=== PATIENT | male | born 1940 | race Caucasian/White ===

== ENCOUNTER 2024-06-15 12:17 | Inpatient (IN) | payer OTHER ==
[~2024-06-15] VITALS: Ht 180.3 cm; Wt 89.8 kg
[2024-06-15 12:35] VITALS: PULSE 70; RESP 20; O2SAT 95
[2024-06-15] MEDS ORDERED: ALLO300T2 PO (12:46)
[2024-06-15] MEDS ORDERED: ROSU10TA16 PO (12:46)
[2024-06-15] MEDS ORDERED: ATEN50TA PO (12:46)
[2024-06-15] MEDS ORDERED: HYDR25TA87 PO (12:46)
[2024-06-15] MEDS ORDERED: LISI10TA34 PO (12:46)
[2024-06-15 13:17] LABS: Basophils # (auto) 0 10 ^3/uL (0-0.2); Eosinophils # (auto) 0 10 ^3/uL (0-0.8); Monocytes # (auto) 0.9 10 ^3/uL (0-1.3); Neutrophils # (auto) 3.5 10 ^3/uL (1.6-8.6)
[2024-06-15 13:19] LABS: Basophils % (auto) 0.3 % (0.0-2.0); Eosinophils % (auto) 0.2 % (0.0-7.0); Hematocrit 41.3 % (41.0-53.0); Hemoglobin 14.1 g/dL (13.5-17.5); Lymphocytes # (auto) 0.8 10 ^3/uL (0.4-5.4); Lymphocytes % (auto) 15.8 % (10.0-50.0); Mean Corpuscular Hemoglobin 34.4 pg (28.0-32.0); Mean Corpuscular Hgb Conc. 34.2 g/dL (32.0-36.0); Mean Corpuscular Volume 100.6 fL (80.0-100.0); Monocytes % (auto) 16.7 % (0.0-12.0); Platelet Count (auto) 248 10^3/uL (140-450); Red Cell Distribution Width 14.6 % (11.8-14.3); White Blood Cell 5.2 10^3/uL (4.4-10.8)
[2024-06-15] MEDS: SODIUM CHLORIDE 0.9% 1,000 ML IV ONE (13:28)
[2024-06-15 14:06] LABS: Rapid Influenza A Negative (Negative); Rapid Influenza B Negative (Negative)
[2024-06-15 14:07] LABS: COVID19 ANTIGEN SOFIA FIA NEGATIVE (NEGATIVE)
[2024-06-15 16:51] LABS: Urine Blood Negative /uL (Negative); Urine Clarity Turbid (Clear); Urine Color Yellow (Yellow); Urine Protein, UAD 1+ (Negative); Urine Specific Gravity 1.026 (1.001-1.035); Urine Urobilinogen Normal (Negative); Urine WBC 5 /hpf (0 - 3)
[2024-06-15 18:24] LABS: Chloride 106 mmol/L (98-107); Potassium 5.1 mmol/L (3.5-5.1); Sodium 135 mmol/L (136-145)
[2024-06-15 18:27] LABS: Anion Gap 10 (5-15); Carbon Dioxide 19 mmol/L (20-30)
[2024-06-15 18:32] LABS: Alkaline Phosphatase 71 U/L (46-116); BUN/Creatinine Ratio 15.3 (10.0-20.0); Blood Urea Nitrogen 58 mg/dL (9-23); Glucose 100 mg/dL (74-106)
[2024-06-15 18:34] LABS: Alanine Aminotransferase 12 U/L (7-40); Albumin 3.8 g/dL (3.2-4.8); Aspartate Aminotransferase 23 U/L (13-40); Bilirubin, Total 0.5 mg/dL (0.2-1.0); Total Protein 6.6 g/dL (5.7-8.2)
[2024-06-15 19:45] VITALS: PULSE 71; RESP 23; O2SAT 95
[2024-06-15] MEDS ORDERED: HYDROcodone-ACET 5/325MG TAB PO PRN (20:30)
[2024-06-15] MEDS ORDERED: HYDROmorphone HCL 2 MG/ML VL/or syr IV PRN (20:30)
[2024-06-15] MEDS ORDERED: DOCUSATE SOD 100 MG CAP PO PRN (20:30)
[2024-06-15] MEDS ORDERED: ONDANSETRON HCL 4 MG/2 ML VIAL IV PRN (20:30)
[2024-06-15] MEDS ORDERED: ACETAMINOPHEN 325 MG TAB PO PRN (20:30)
[2024-06-15] MEDS: FAMOTIDINE (10MG/ML) 2ML VL IV ONE (20:35)
[2024-06-15] MEDS: LACTATED RINGER'S 1,000 ML IV ONE (20:36)
[2024-06-15] MEDS: PANTOPRAZOLE 40 MG/10 ML VIAL INJ IV SCH (22:14)
[2024-06-15] MEDS: ATORVASTATIN 20 MG TAB PO SCH (22:15)
[2024-06-15] MEDS: SODIUM CHLOR 0.9% PF (SALINE LOCK) 10ML VIAL/SYR IV SCH (22:15)
[2024-06-15 23:14] VITALS: BP 106/46; PULSE 74; RESP 18; TEMP 98.5; O2SAT 91
[2024-06-16] VITALS (7 sets, daily range): BP systolic 76–121; BP diastolic 24–58; PULSE 75–85; RESP 18–20; TEMP 98–98.7; O2SAT 90–97
[2024-06-16 05:45] LABS: Hematocrit 38.9 % (41.0-53.0); Hemoglobin 13.2 g/dL (13.5-17.5); Mean Corpuscular Hemoglobin 33.7 pg (28.0-32.0); Mean Corpuscular Hgb Conc. 33.9 g/dL (32.0-36.0); Mean Corpuscular Volume 99.5 fL (80.0-100.0); Platelet Count (auto) 224 10^3/uL (140-450); Red Blood Cells 3.91 10^6/uL (4.5-5.90); Red Cell Distribution Width 14.5 % (11.8-14.3); White Blood Cell 6.2 10^3/uL (4.4-10.8)
[2024-06-16 05:53] LABS: Band Neutrophils % (manual) 0; Basophils % (manual) 0 (0.0-2.0); Blast Cells 0; Metamyelocytes % 0; Myelocytes % 0; Promyelocytes % 0; Reactive Lymphocytes 0
[2024-06-16 06:07] LABS: Alanine Aminotransferase 15 U/L (7-40); Albumin 3.8 g/dL (3.2-4.8); Alkaline Phosphatase 66 U/L (46-116); Anion Gap 9 (5-15); Aspartate Aminotransferase 24 U/L (13-40); BUN/Creatinine Ratio 20.4 (10.0-20.0); Bilirubin, Total 0.6 mg/dL (0.2-1.0); Blood Urea Nitrogen 79 mg/dL (9-23); Calcium 9.1 mg/dL (8.7-10.4); Carbon Dioxide 20 mmol/L (20-30); Chloride 108 mmol/L (98-107); Glucose 103 mg/dL (74-106); Potassium 4.8 mmol/L (3.5-5.1); Sodium 137 mmol/L (136-145); Total Protein 6.3 g/dL (5.7-8.2)
[2024-06-16 06:37] LABS: Eosinophils % (manual) 4 (0-7); Lymphocytes % (manual) 13 (10.0-50.0); Monocytes % (manual) 21 (0-12); Smudge Cells 2 /100 WBC
[2024-06-16 06:38] LABS: Platelet Estimate Adequate
[2024-06-16] MEDS: ALLOPURINOL 100 MG TAB PO SCH (09:54)
[2024-06-16] MEDS: SODIUM CHLORIDE 0.9% 1,000 ML IV SCH (13:45)
[2024-06-16 14:11] LABS: Sodium Urine 35 mmol/L (40-220)
[2024-06-16 14:18] LABS: Amphetamine Screen, Urine Neg (NEGATIVE); Barbiturate Scree,Urine Neg (NEGATIVE); Benzodiazephine Screen, Urine Neg (NEGATIVE); Cocaine Screen, Urine Neg (NEGATIVE)
[2024-06-16 14:19] LABS: Creatinine, Urine 189.18 mg/dL (30.0-125.0); Opiate Scree,Urine Neg (NEGATIVE)
[2024-06-16 14:20] LABS: Cannabinoid Screen, Urine Neg (NEGATIVE); Phencyclidine Screen, Urine Neg (NEGATIVE)
[2024-06-16] MEDS ORDERED: AZITHROMYCIN 500MG/ 250ML 250 ML IV SCH (17:00)
[2024-06-16] MEDS: cefTRIAXone 1GM/50ML D5W 50 ML IV ONE (18:08)
[2024-06-16] MEDS: AZITHROMYCIN 500MG/ 250ML 250 ML IV ONE (18:08)
[2024-06-16] MEDS ORDERED: predniSONE 20 MG TAB PO ONE (20:30)
[2024-06-16] MEDS: predniSONE 20 MG TAB PO ONE (21:52)
[2024-06-17] VITALS (7 sets, daily range): BP systolic 121–155; BP diastolic 54–87; PULSE 63–83; RESP 18–20; TEMP 97.8–98.7; O2SAT 91–97
[2024-06-17 06:39] LABS: Basophils # (auto) 0 10 ^3/uL (0-0.2); Basophils % (auto) 0.1 % (0.0-2.0); Eosinophils # (auto) 0 10 ^3/uL (0-0.8); Hematocrit 37.5 % (41.0-53.0); Hemoglobin 12.7 g/dL (13.5-17.5); Lymphocytes # (auto) 0.3 10 ^3/uL (0.4-5.4); Lymphocytes % (auto) 6.9 % (10.0-50.0); Mean Corpuscular Hemoglobin 33.8 pg (28.0-32.0); Mean Corpuscular Hgb Conc. 33.8 g/dL (32.0-36.0); Monocytes # (auto) 0.1 10 ^3/uL (0-1.3); Monocytes % (auto) 2.4 % (0.0-12.0); Neutrophils # (auto) 4.5 10 ^3/uL (1.6-8.6); Neutrophils % (auto) 90.6 % (37.0-80.0); Platelet Count (auto) 195 10^3/uL (140-450); Red Blood Cells 3.75 10^6/uL (4.5-5.90); Red Cell Distribution Width 14.2 % (11.8-14.3); White Blood Cell 4.9 10^3/uL (4.4-10.8)
[2024-06-17 06:58] LABS: Alanine Aminotransferase 11 U/L (7-40); Albumin 3.7 g/dL (3.2-4.8); Alkaline Phosphatase 75 U/L (46-116); Anion Gap 8 (5-15); Aspartate Aminotransferase 25 U/L (13-40); BUN/Creatinine Ratio 25.4 (10.0-20.0); Bilirubin, Total 0.5 mg/dL (0.2-1.0); Calcium 9.2 mg/dL (8.7-10.4); Carbon Dioxide 19 mmol/L (20-30); Chloride 113 mmol/L (98-107); Glucose 155 mg/dL (74-106); Potassium 4.8 mmol/L (3.5-5.1); Sodium 140 mmol/L (136-145); Total Protein 6.3 g/dL (5.7-8.2)
[2024-06-17 07:05] LABS: Blood Urea Nitrogen 85 mg/dL (9-23)
[2024-06-17] MEDS: GASTROGRAFIN 120 ML SOL ONE (08:00)
[2024-06-17] MEDS: cefTRIAXone 1GM/50ML D5W 50 ML IV SCH (08:55)
[2024-06-17] MEDS ORDERED: predniSONE 20 MG TAB PO SCH (10:00)
[2024-06-17] MEDS: predniSONE 20 MG TAB PO SCH (12:42)
[2024-06-17] MEDS: AZITHROMYCIN 500MG/ 250ML 250 ML IV SCH (15:52)
[2024-06-17] MEDS: SODIUM CHLORIDE 0.9% 1,000 ML IV SCH (22:09)
[2024-06-17] MEDS: SODIUM BICARBONATE 650 MG TAB PO SCH (22:09)
[2024-06-18] VITALS (12 sets, daily range): BP systolic 117–173; BP diastolic 52–84; PULSE 65–92; RESP 15–22; TEMP 97.3–98.1; O2SAT 95–99
[2024-06-18] MEDS: hydrALAZINE HCL 20 MG/ML VL IV PRN (00:51)
[2024-06-18 06:52] LABS: Basophils # (auto) 0 10 ^3/uL (0-0.2); Basophils % (auto) 0.1 % (0.0-2.0); Eosinophils # (auto) 0 10 ^3/uL (0-0.8); Hematocrit 38.8 % (41.0-53.0); Hemoglobin 13.1 g/dL (13.5-17.5); Lymphocytes # (auto) 0.7 10 ^3/uL (0.4-5.4); Lymphocytes % (auto) 6.9 % (10.0-50.0); Mean Corpuscular Hgb Conc. 33.7 g/dL (32.0-36.0); Monocytes # (auto) 0.8 10 ^3/uL (0-1.3); Monocytes % (auto) 7.1 % (0.0-12.0); Neutrophils # (auto) 9.3 10 ^3/uL (1.6-8.6); Neutrophils % (auto) 85.9 % (37.0-80.0); Platelet Count (auto) 206 10^3/uL (140-450); Red Blood Cells 3.85 10^6/uL (4.5-5.90); Red Cell Distribution Width 14.3 % (11.8-14.3); White Blood Cell 10.8 10^3/uL (4.4-10.8)
[2024-06-18 07:09] LABS: Alanine Aminotransferase 18 U/L (7-40); Albumin 3.7 g/dL (3.2-4.8); Alkaline Phosphatase 79 U/L (46-116); Anion Gap 8 (5-15); Aspartate Aminotransferase 26 U/L (13-40); BUN/Creatinine Ratio 32.1 (10.0-20.0); Bilirubin, Total 0.5 mg/dL (0.2-1.0); Calcium 9.7 mg/dL (8.7-10.4); Carbon Dioxide 20 mmol/L (20-30); Chloride 113 mmol/L (98-107); Glucose 140 mg/dL (74-106); Magnesium 2.2 mg/dL (1.6-2.6); Potassium 4.9 mmol/L (3.5-5.1); Sodium 141 mmol/L (136-145); Total Protein 6.3 g/dL (5.7-8.2)
[2024-06-18 07:10] LABS: Blood Urea Nitrogen 68 mg/dL (9-23)
[2024-06-19 11:57] LABS: Free T3 2.15 pg/mL (2.3-4.2)
[2024-06-19 11:58] LABS: Free T4 (Free Thyroxine) 1.16 ng/dL (0.89-1.76)
[2024-06-20 11:39] LABS: Folate (Folic Acid) 33.29 ng/mL (>5.38)
== END 2024-06-18 21:56 | disposition short-term general hospital (02) | DRG 682 ==
LOC: ER 12:17 → EDBD 12:17 → OVERFLOW 20:17 → CENTRAL 20:20
PROVIDERS: ADMIT Internal Medicine; ATTEND Internal Medicine
PROC: 5A09357 Assistance with Respiratory Ventilation, Less than 24 Consecutive Hours, Continuous Positive Airway Pressure (ICD-10-PCS; principal; 2024-06-17)
DX: N17.9 Acute kidney failure, unspecified (principal); J15.69 Pneumonia due to other Gram-negative bacteria; J15.9 Unspecified bacterial pneumonia; J98.11 Atelectasis; K56.690 Other partial intestinal obstruction; K65.4 Sclerosing mesenteritis; E86.0 Dehydration; N18.4 Chronic kidney disease, stage 4 (severe); K52.9 Noninfective gastroenteritis and colitis, unspecified; I12.9 Hypertensive chronic kidney disease with stage 1 through stage 4 chronic kidney disease, or unspecified chronic kidney disease; M10.9 Gout, unspecified; Z20.822 Contact with and (suspected) exposure to COVID-19; N28.1 Cyst of kidney, acquired; E78.5 Hyperlipidemia, unspecified; G47.30 Sleep apnea, unspecified; Z86.73 Personal history of transient ischemic attack (TIA), and cerebral infarction without residual deficits; Z88.0 Allergy status to penicillin; Z82.3 Family history of stroke
CPT/HCPCS: 36415; 71045; 74018; 74176; 74250; 76775; 80053; 80307; 81001; 82270; 82570; 82607; 82746; 82962; 83036; 83605; 83690; 83735; 83880; 84300; 84439; 84443; 84481; 84484; 85007; 85025; 85027; 85048; 87045; 87086; 87426; 87427; 87493; 87804; 94660; 97163; G0378; J2470; J3490